=== PATIENT | male | born 1945 | race Caucasian/White ===

== ENCOUNTER 2017-01-23 00:06 | Emergency (ER) | payer SELFPAY ==
--- NOTE | 2017-01-23 04:29 | ED ORDER SUMMARY ---
..... Patient: PRABHAKAR TOLENTINO OrderSheet [facility] VisitID: [id number] [place] [address] 71y, M Registration Date/Time: 01/23/2017 ORDER SHEET Weight: 81.6 kg (stated) Allergies: No Known Drug Allergy GENERAL ORDERS: Shift Mechanic (Continuous) (dizzy) (00:01/23/2017 Laura Cage) (Ack 0:27 OSnell) (0:34 JSanders R.N.) CBC w Diff Urgent (00:01/23/2017 Laura Cage) (Ack 0:27 OSnell) (0:30 JSanders R.N.) CMP Urgent (00:01/23/2017 Laura Cage) (Ack 0:27 OSnell) (0:30 JSanders R.N.) UA-Culture if indicated Urgent (00:01/23/2017 Laura Cage) (Ack 0:27 OSnell) (4:00 JSanders R.N.) PT with INR Urgent (00:01/23/2017 Laura Cage) (Ack 0:27 OSnell) (0:30 JSanders R.N.) PTT Urgent (00:01/23/2017 Laura Cage) (Ack 0:27 OSnell) (0:30 JSanders R.N.) Troponin-I Urgent (00:01/23/2017 Laura Cage) (Ack 0:27 OSnell) (0:30 JSanders R.N.) EKG - ER Stat (00:01/23/2017 Lauar Cage) (Ack 0:27 OSnell) (0:30 JSanders R.N.) Pulse oximeter (00:01/23/2017 Laura Cage) (Ack 0:27 OSnell) (0:28 JSanders R.N.) CT Abd/Pel w Cont (No) (N/A) Urgent (00:01/23/2017 Laura Cage) (Ack 0:32 OSnell) (1:23 JSanders R.N.) Lipase Urgent (00:29 01/23/2017 Laura Cage) (0:30 JSanders R.N.) TSH Urgent (00:38 01/23/2017 Laura Cage) (Ack 0:42 OSnell) (0:51 JSanders R.N.) Chest 1V Urgent (00:53 01/23/2017 Laura Cage) (Ack 0:58 OSnell) (1:23 JSanders R.N.) Troponin-I (redraw once now) Urgent (02:51 01/23/2017 Laura Cage) (Ack 2:53 OSnell) (3:01 KALanders R.N.) MEDICATION ORDERS: Zofran ODT PO 4 mg (NOW) (00:26 01/23/2017 Laura Cage) (0:36 JSanders R.N.) Phenergan IV 25 mg (HIGH ALERT MEDICATION, NOW) (01:36 01/23/2017 Laura Cage) (Ack 1:37 JSanders R.N.) (1:52 JSanders R.N.) IV FLUIDS: Morphine IV 4 mg (HIGH ALERT MEDICATION, NOW) (00:26 01/23/2017 Laura Cage) (Ack 0:35 JSanders R.N.) (Cancelled: Patient Refusal2:45 KALanders R.N.) IV Saline Lock (00:26 01/23/2017 Laura Cage) (0:34 MCook R.N.) IV NS : initial bolus 1000 mL (1000 mL/hr), then none - for X1 (NOW) (02:55 01/23/2017 Laura Cage) (3:00 JSanders R.N.) ORDER SHEET NOTES: [Electronically signed by Catalina Jenkins R.N. (07:19 01/23/2017)] [Electronically signed by Carrillo Rowe Dr. (06:15 01/24/2017)] [Electronically locked/signed by Catalina Jenkins R.N. (07:19 01/23/2017)]
--- NOTE | 2017-01-23 04:29 | ED ORDER SUMMARY ---
..... Patient: PRABHAKAR TOLENTINO OrderSheet [facility] VisitID: [id number] [place] [address] 71y, M Registration Date/Time: 01/23/2017 ORDER SHEET Weight: 81.6 kg (stated) Allergies: No Known Drug Allergy GENERAL ORDERS: Hat Binder (Continuous) (dizzy) (00:01/23/2017 Laura Cage) (Ack 0:27 OSnell) (0:34 JSanders R.N.) CBC w Diff Urgent (00:01/23/2017 Laura Cage) (Ack 0:27 OSnell) (0:30 JSanders R.N.) CMP Urgent (00:01/23/2017 Laura Cage) (Ack 0:27 OSnell) (0:30 JSanders R.N.) UA-Culture if indicated Urgent (00:01/23/2017 Laura Cage) (Ack 0:27 OSnell) (4:00 JSanders R.N.) PT with INR Urgent (00:01/23/2017 Laura Cage) (Ack 0:27 OSnell) (0:30 JSanders R.N.) PTT Urgent (00:01/23/2017 Laura Cage) (Ack 0:27 OSnell) (0:30 JSanders R.N.) Troponin-I Urgent (00:01/23/2017 Laura Cage) (Ack 0:27 OSnell) (0:30 JSanders R.N.) EKG - ER Stat (00:01/23/2017 Laura Cage) (Ack 0:27 OSnell) (0:30 JSanders R.N.) Pulse oximeter (00:01/23/2017 Laura Cage) (Ack 0:27 OSnell) (0:28 JSanders R.N.) CT Abd/Pel w Cont (No) (N/A) Urgent (00:01/23/2017 Laura Cage) (Ack 0:32 OSnell) (1:23 JSanders R.N.) Lipase Urgent (00:29 01/23/2017 Laura Cage) (0:30 JSanders R.N.) TSH Urgent (00:38 01/23/2017 Laura Cage) (Ack 0:42 OSnell) (0:51 JSanders R.N.) Chest 1V Urgent (00:53 01/23/2017 Laura Cage) (Ack 0:58 OSnell) (1:23 JSanders R.N.) Troponin-I (redraw once now) Urgent (02:51 01/23/2017 Laura Cage) (Ack 2:53 OSnell) (3:01 KALanders R.N.) MEDICATION ORDERS: Zofran ODT PO 4 mg (NOW) (00:26 01/23/2017 Laura Cage) (0:36 JSanders R.N.) Phenergan IV 25 mg (HIGH ALERT MEDICATION, NOW) (01:36 01/23/2017 Laura Cage) (Ack 1:37 JSanders R.N.) (1:52 JSanders R.N.) IV FLUIDS: Morphine IV 4 mg (HIGH ALERT MEDICATION, NOW) (00:26 01/23/2017 Laura Cage) (Ack 0:35 JSanders R.N.) (Cancelled: Patient Refusal2:45 KALanders R.N.) IV Saline Lock (00:26 01/23/2017 Laura Cage) (0:34 MCook R.N.) IV NS : initial bolus 1000 mL (1000 mL/hr), then none - for X1 (NOW) (02:55 01/23/2017 Laura Cage) (3:00 JSanders R.N.) ORDER SHEET NOTES: [Electronically signed by Catalina Jenkins R.N. (07:19 01/23/2017)] [Electronically signed by Carrillo Rowe Dr. (06:15 01/24/2017)] [Electronically locked/signed by Catalina Jenkins R.N. (07:19 01/23/2017)]
--- NOTE | 2017-01-23 04:29 | ED NURSING NOTES ---
Clinical Report - Nurses [place] [address] [place] [address] 01/23/2017 0:09 Patient: PRABHAKAR TOLENTINO TRIAGE 00:16 01/23/17. BP: 165/74 (regular adult cuff) taken on the left arm. HR: 72. RR: 18. O2 saturation: 99% on room air. Temp: 97.4 F (oral). Pain level now: 010. --00:25 Catalina Jenkins R.N. late entry - 00:01/23/17. --00:45 Catalina Jenkins R.N. Triage time 00:Jan 23 2017. Acuity: LEVEL 4. Chief Complaint: FALL while standing, onto a carpeted surface (patient is dizzy, sensitive to light, diaphoretic). 00:25 01/23/17. SEPSIS SCREEN: Sepsis Screen. Negative (no infection suspected/documented). CARLOS COMA SCORE: Carlos Coma Scale: 15- eyes open spontaneously (4); best verbal response- oriented x 4 (5); best motor response- obeys commands (6). --00:25 Catalina Jenkins R.N. Weight: 81.6 kg stated. Height/Length: 67 inches Per Patient. BMI: 28.2. --00:24 Catalina Jenkins R.N. Medications None. --00:17 Catalina Jenkins R.N. Allergies No Known Drug Allergy. --00:17 Catalina Jenkins R.N. History Arrived by EMS. Historian: patient. This occurred just prior to arrival. Occurred at home. He has had dizziness. Treatment BLASTING MACHINE OPERATOR: None. Trauma activation: Pre-hospital notification of patient arrival was received. PAST MEDICAL HX: Negative. SOCIAL HX: Never smoker. No alcohol use or drug use. No infectious disease exposure. ABUSE ASSESSMENT: No report of abuse. SELF HARM ASSESSMENT: A self harm assessment was performed. The patient answered "no" to the question "Do you have thoughts of harming or killing yourself?" and "Have you recently had thoughts about harming or killing others?". --00:25 Catalina Jenkins R.N. Treatment BLASTING MACHINE OPERATOR: EMS treatment BLASTING MACHINE OPERATOR verbally communicated. Finger stick glucose performed (115). BP: 165/74. HR: 80 regular. RR: 18 (regular, unlabored and normal). Temp: 97.5 oral. O2 saturation: 98 % room air. --00:45 Catalina Jenkins R.N. PROBLEMS: no known problems. ADDITIONAL SURGERIES: no known surgeries. Interventions ID band on patient. To treatment room. --00:25 Catalina Jenkins R.N. PHYSICAL ASSESSMENT 00:27 01/23/17. To room via stretcher. Patient gowned. GENERAL / NEURO / PSYCH: Alert. Oriented X 4. Appears in no acute distress. Appears in pain. He has had weakness. HEENT: Pupils equal, round and reactive to light. Head non-tender. RESPIRATORY: Respirations not labored. Chest nontender. Breath sounds within normal limits. CVS: Normal heart rate and rhythm. Pulses within normal limits. Capillary refill less than 2 seconds. GI / : Abdominal tenderness. EXTREMITIES: Extremities exhibit normal ROM. SKIN: Skin intact. Skin is diaphoretic. --00:27 Catalina Jenkins R.N. NURSING PROGRESS NOTES 00:26 01/23/2017 Zofran ODT (Ondansetron) PO Oral Disintegrating Tablets 4 mg given. Allergies verified and confirmed 5 rights. --00:36 Catalina Jenkins R.N. 00:27 01/23/17. The plan of care for this patient has been created. Patient gowned. Reassurance given. Two patient identifiers checked. Call light placed in reach. Side rails up x 1. Bed placed in lowest position. Brakes of bed on. Patient ready for evaluation- chart flagged and ED physician notified. --00:28 Catalina Jenkins R.N. 00:29 01/23/2017 Site #1 started via IV in the right antecubital space with an 20g angiocath, with aseptic technique and good blood return; one attempt. Blood drawn: rainbow set. Labeled in the presence of the patient and sent to the lab. Saline lock flushed with 10 mL saline. --00:34 Arpit Lezama R.N. EKG time: (0032). EKG was ordered, performed by a tech and shown to the ED physician. --00:38 Catracho Ochoa, ER Substation Electrician Supervisor 00:55 01/23/17. ( Patient placed on 2L oxygen via NC). --00:55 Catalina Jenkins R.N. 00:55 01/23/17. ( Patient still feeling Nauseous). --00:55 Catalina Jenkins R.N. Patient transported to CT by stretcher with tech. (01:Jan 23 2017). --01:11 Catalina Jenkins R.N. Patient returned from radiology by stretcher with tech. (:Jan 23 2017). --01:22 Catalina Jenkins R.N. 01:28 01/23/17. --01:28 Catalina Jenkins R.N. 01:27 01/23/17. BP: 132/74 (regular adult cuff) taken on the left arm. HR: 68. RR: 22. O2 saturation: 100% on nasal cannula at 2 liters/minute. Pain level now: 0/10. --01:28 Catalina Jenkins R.N. ( son at bedside). --01:28 Catalina Jnekins R.N. ( patient given warm blanket). --01:28 Catalina Jenkins R.N. ( Patient having knee jerks, he thinks its because he is cold). --01:29 Catalina Jenkins R.N. ( Patient just had Xray). --01:36 Catalina Jenkins R.N. 01:49 01/23/17. BP: 135/82 (regular adult cuff) taken on the left arm, while sitting. HR: 64. RR: 18. O2 saturation: 100% on nasal cannula at 2 liters/minute. Pain level now: 0/10. --01:49 Catalina Jenkins R.N. 01:50 01/23/17. BP: 121/77 (regular adult cuff) taken on the left arm, while sitting. HR: 62. RR: 12. O2 saturation: 99% on nasal cannula at 2 liters/minute. --01:51 Catalina Jenkins R.N. 01:52 01/23/2017 PHENERGAN (Promethazine HCl) IVP 12.5 mg given over 5 minute(s) via site #1. Allergies verified and confirmed 5 rights. IV patency established. IV site checked: no pain, redness, or swelling. IV flushed thoroughly pre- and post-medication administration. IVP given by RN. --01:52 Catalina Jenkins R.N. 02:25 01/23/2017 PHENERGAN IVP Response: no adverse reaction pain is gone now. Symptoms have improved the patient feels better. --02:25 Catalina Jenkins R.N. 02:26 01/23/17. The patient is sleeping. Overall patient status is improved. RESPIRATORY: No respiratory distress. ( Patient sleeping, easily aroused, will let patient rest, vitals normal). --02:26 Catalina Jenkins R.N. 02:26 01/23/17. BP: 130/54 (regular adult cuff) taken on the left arm, while sitting. HR: 70. RR: 16. O2 saturation: 100% on nasal cannula at 2 liters/minute. Pain level now: 0/10. --02:27 Catalina Jenkins R.N. 03:00 01/23/2017 Started bag #1 1000 mL IV Fluids IV NS (Saline); bolus of 1000 mL over 1 hour(s) then at 1000 mL/hr over 1 hour(s) via site #1 via IV pump. Allergies verified and confirmed 5 rights. IV patency established. IV site checked: no pain, redness, or swelling. IV flushed thoroughly pre- and post-medication administration. --03:00 Catalina Jenkins R.N. 03:43 01/23/17. BP: 108/54 (regular adult cuff) taken on the left arm. HR: 71. RR: 16. O2 saturation: 100% on nasal cannula at 2 liters/minute. Pain level now: 0/10. --03:43 Catalina Jenkins R.N. 03:46 01/23/17. ( Explained to patient and son what an elevated troponin means and when it elevates, they state their understanding to this explanation, also explained that there hasn't been any elevation in the troponin). --03:46 Catalina Jenkins R.N. 04:18 01/23/2017 IV Fluids IV NS Discontinued: bag #1 completed. Total amount infused: 1000 mL. IV patency established. IV site checked: no pain, redness, or swelling. IV flushed thoroughly. --04:43 Catalina Jenkins R.N. DISPOSITION / DISCHARGE 04:30 01/23/17. BP: 110/50 (regular adult cuff) taken on the left arm, while sitting. HR: 72. RR: 16. O2 saturation: 99% on nasal cannula at 2 liters/minute. Temp: 97.5 F (oral). Pain level now: 0/10. --04:32 Catalina Jenkins R.N. 04:32 01/23/17. --04:32 Catalina Jenkins R.N. 04:42 01/23/2017 Site #1 removed upon discharge. Bandaid applied. --04:42 Catalina Jenkins R.N. 04:44 01/23/17. Condition at departure: improved. No learning barriers present. Discharge instructions provided and reviewed with the patient. Reviewed medication(s) side effects, precautions, dosing and course information. Prescription(s) given to the patient (Phenergan). Reviewed need for increased fluid intake. Family verbalized understanding. Written instructions provided in Belarusian. The patient was discharged by the physician. He was discharged home and accompanied by family. He left the Emergency Department ambulatory and via private vehicle. Family member driving. --04:44 Catalina Jenkins R.N. Departure time: 04:45 Jan 23 2017. --04:45 Catalina Jenkins R.N. Locked/Released at 01/23/2017 7:19 by Catalina Jenkins R.N.
--- NOTE | 2017-01-23 04:29 | ED CLINICAL REPORT ---
Clinical Report - Physicians/Mid Levels [facility] [address] [place] [address] 01/23/2017 0:09 Patient: PRABHAKAR TOLENTINO Time Seen: 0010. Arrived- By ambulance. Historian- patient. HISTORY OF PRESENT ILLNESS Chief Complaint: ABDOMINAL PAIN. It is described as sharp and it is described as located in the left upper quadrant. At its maximum, severity described as moderate. Modifying factors- worsened by movement. Relieved by rest. This started today and is still present. It was abrupt in onset and has been constant but is not gone now. The patient has had nausea and vomiting. (states he feels dizzy like "on a roller coaster." Reports this happened after getting up and answering the phone. reports slumping to the floor and not being able to get up. Reports generalized weakness. States he had a hernia and was moving furniture recently.). Similar symptoms previously: None. Recent medical care: Not recently seen/assessed. REVIEW OF SYSTEMS No constipation, black stools, hematemesis, bloody stools or chest pain. No difficulty breathing. All systems otherwise negative, except as recorded above. PAST HISTORY See nurses notes. Problems: no known problems. Additional Surgeries: no known surgeries. Medications: None. Allergies: No Known Drug Allergy. SOCIAL HISTORY Never smoker. No alcohol use or drug use. No recent travel. Is a local resident. ADDITIONAL NOTES The nursing notes have been reviewed. PHYSICAL EXAM Vital Signs: 01/23/2017 00:16 BP: 165/74. HR: 72. RR: 18. O2 saturation: 99%. Temp: 97.4 F. Pain level now: 0/10. Oxygen saturation normal. Appearance: Alert. Oriented X3. No acute distress. Eyes: Pupils equal, round and reactive to light. Eyes normal inspection. ENT: Ears normal. Nose normal. Pharynx normal. Neck: Normal inspection. CVS: Normal heart rate and rhythm. Heart sounds normal. Pulses normal. Respiratory: No respiratory distress. Breath sounds normal. Chest nontender. No rales, rhonchi or wheezes. Abdomen: Soft and nontender. Bowel sounds normal. No organomegaly. No mass. Femoral pulses equal. Back: Normal inspection. Skin: Skin warm and dry. Normal skin color. No rash. Normal skin turgor. Extremities: Extremities exhibit normal ROM. No lower extremity edema. Neuro: Oriented X 3. No motor deficit. No sensory deficit. (normal HINTS exam.). LABS, X-RAYS, AND EKG EKG: No acute process. No acute ischemia. Normal EKG. Normal sinus rhythm. Rate: 72. Normal P waves. Normal SKYLA. Normal QRS complex. Normal axis. Normal ST and T waves and QT. No RBBB pattern on my read. The study has been interpreted contemporaneously. The study has been independently viewed by me. The EKG appears to be a good tracing. Laboratory Tests: UA-Culture if indicated: (HODA: 01/23/2017 03:55) ( [facility] Final results Test Result Flag Units (Reference) URINE COLOR YELLOW URINE APPEARANCE CLEAR URINE GLUCOSE NEGATIVE (NEGATIVE) URINE BILIRUBIN NEGATIVE (NEGATIVE) URINE KETONE NEGATIVE (NEGATIVE) URINE SPECIFIC GRAVITY 1.010 (1.010-1.030) URINE PH 7.0 (5.0-8.0) URINE PROTEIN NEGATIVE (NEGATIVE) URINE UROBILINOGEN 0.2 EU/dL (0.2-1.0) URINE NITRITE NEGATIVE (NEGATIVE) URINE BLOOD NEGATIVE (NEGATIVE) URINE LEUK ESTERASE NEGATIVE (NEGATIVE) URINE RBC 0-1 rbc/hpf (0-1) URINE WBC 0-1 wbc/hpf (0-1) URINE EPITHELIAL CELLS 0-1 EPI/hpf (0-5) URINE BACTERIA NONE SEEN (NONE SEEN) URINE COMMENT CULT NOT INDICATED URINE CULTURES ARE SET-UP BASED ON THE FOLLOWING CRITERIA:POSITIVE NITRITEPOSITIVE LEUKOCYTE ESTERASEGREATER THAN 10 WHITE BLOOD CELLSMODERATE (2+) OR GREATER BACTERIA CBC w Diff: (HODA: 01/23/2017 00:30) ( [facility] 01/23/2017 00:38) Final results Test Result Flag Units (Reference) WHITE BLOOD COUNT 11.7 H K/uL (4.5-11.5) RED BLOOD COUNT 4.70 M/uL (4.50-5.90) HEMOGLOBIN 14.7 gm/dL (13.5-17.5) HEMATOCRIT 43.3 % (41.0-53.0) MEAN CELL VOLUME 92 fL (80-100) MEAN CORPUSCULAR HGB 31 pg (26-34) MEAN CORPUSCULAR HGB CONC 34 g/dL (31-37) RED CELL DISTRIBUTION WIDTH 12.8 % (11.6-14.8) PLATELET COUNT 339 K/uL (150-400) NEUTROPHIL % 38.1 L % (50-75) LYMPH % 47.5 H % (25-40) MONO % 9.0 % (3-14) EOSINOPHIL % 4.7 H % (0-4) BASOPHIL % 0.7 % (0-2) PT with INR: (HODA: 01/23/2017 00:30) ( [facility] 01/23/2017 00:46) Final results Test Result Flag Units (Reference) INR 1.0 (0.8-1.2) Low Intensity Therapy: INR 1.5-2.0 PT range 18.5-23.1Mod.Intensity Therapy: INR 2.0-3.0 PT range 23.1-31.5High Intensity Therapy: INR 2.5-3.5 PT range 27.4-35.5High Intensity Therapy 2: INR 3.0-4.0 PT range 31.5-39.3 APTT 28 SECONDS (24-34) Troponin-I: (HODA: 01/23/2017 03:00) ( [facility] 01/23/2017 03:25) Final results Test Result Flag Units (Reference) TROPONIN I <0.05 ng/mL (0.00-1.5) TROPONIN REFERENCE RANGE:<0.1 NEGATIVE0.1-1.5 INDETERMINANT>1.5 POSITIVE TSH: (HODA: 01/23/2017 00:30) ( [facility] 01/23/2017 01:03) Final results Test Result Flag Units (Reference) THYROID STIMULATING HORMONE 3.377 uIU/mL (0.30-3.74) Lipase: (HODA: 01/23/2017 00:30) ( [facility] 01/23/2017 01:03) Final results Test Result Flag Units (Reference) LIPASE 229 U/L (73-393) CMP: (HODA: 01/23/2017 00:30) ( [facility] 01/23/2017 00:55) Final results Test Result Flag Units (Reference) GLUCOSE 114 H mg/dL (70-110) BUN 23 H mg/dL (7-18) CREATININE 0.9 mg/dL (0.6-1.3) Estimated GFR >60 mL/min Estimated GFR- >60 mL/min Note: Persistent reduction over 3 months in eGFR<60 mL/min/1.73 m2 defines CKD. Patients with eGFR values>=60 mL/min/1.73 m2 may also have CKD if evidence ofpersistent proteinuria. Additional information may be foundat www.kidney.org. SODIUM 142 mmol/L (136-145) POTASSIUM 3.7 mmol/L (3.5-5.1) CHLORIDE 104 mmol/L (98-107) CARBON DIOXIDE 27 mmol/L (21-32) CALCIUM 9.0 mg/dL (8.5-10.1) TOTAL PROTEIN 7.3 g/dL (6.4-8.2) ALBUMIN 3.8 g/dL (3.3-5.0) BILIRUBIN, TOTAL 0.8 mg/dL (0.0-1.0) ALKALINE PHOSPHATASE 51 U/L (46-116) AST (SGOT) 19 U/L (15-37) ALT (SGPT) 28 U/L (12-78) TROPONIN I <0.05 ng/mL (0.00-1.5) TROPONIN REFERENCE RANGE:<0.1 NEGATIVE0.1-1.5 INDETERMINANT>1.5 POSITIVE . PROGRESS AND PROCEDURES Course of Care: Patient with dizziness and n/v. generalized weakness and could not stand up after answering phone. neuro exam negative. normal HINTS exam. Do not feel this is stroke. Patient with nausea and vomiting after palpation of abdomen. Concern for abdominal etiology of symptoms. Could also be cardiac. Will be evaluating for other causes of near-syncope as well however feel it is more vertiginous in etiology. The Patient's Workup Was Markable for the Findings above. During Patient's Stay Here in the Emergency Department He Is Noted to Report Some Shortness of Breath after His Episode of Nausea and Vomiting. We'll Also Add a Chest X-Ray to the Patient's Evaluation. Patient's CT Scan Does Not Show Any Acute Abnormalities. Patient with a Nontender Abdominal Examination and Continues to Be Non-Peritoneal. Patient with Improved Symptoms While Here in the Emergency Department. EKG without Any Acute Abnormalities. Because of the Patient's Negative Workup Here in the Emergency Department and Significant Improvement with Symptoms, Feel Patient Is a Stable Outpatient Candidate. Patient Continues to Be Nontoxic and Is in No Acute Distress. Repeat Examination Continues to Be Benign. Do Not Fill Symptoms at This Time Are Due To the Acute Stroke or Similar Etiology. I Discussion with the Patient and the Patient's Son Who Is at Bedside per Patient's Request about Their Workup in the Emergency Department Including Diagnosis, Home Care, Follow-Up, and Return Precautions. All Questions Have Been Answered. The Patient Expressed Understanding of These Instructions and Was Agreeable to Them. Disposition: Discharged. Condition: good. CLINICAL IMPRESSION 01/23/2017 03:43 BP: 108/54. HR: 71. RR: 16. O2 saturation: 100%. Pain level now: 0/10. Moderate nausea with vomiting (acute). Blood pressure normal. Oxygen saturation normal. Mild dehydration (acute). 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 INSTRUCTIONS Warnings: GENERAL WARNINGS: Return or contact your physician immediately if your condition worsens or changes unexpectedly, if not improving as expected, or if other problems arise. SPECIFICALLY, return if you develop pain, fever, vomiting, the inability to keep fluids down, blood in vomitus, blood in diarrhea, fainting or lightheadedness. Prescription Medications: Phenergan 25 mg suppositories: insert 1 rectally every 8 hours as needed for nausea, vomiting or motion sickness. Dispense thirty (30). No refill. Substitution is permissible Follow-up: Return to the emergency department as needed. Follow up with your doctor in three days. Reason for referral: recheck today's concerns. Summary of care provided to patient via paper. Screening today revealed the patient's blood pressure to be in the normal range. The patient should follow up with a primary care provider for blood pressure management. (Electronically signed by Carrillo Rowe Dr. 01/24/2017 6:15)
--- NOTE | 2017-01-23 05:58 | DIAGNOSTIC IMAGING REPORT ---
PROCEDURE: XR CHEST 1 VIEW INDICATION: SHORTNESS OF BREATH TECHNIQUE: Portable AP view 01:39 a.m. COMPARISON: None. FINDINGS: Lungs are clear. Heart and mediastinum are normal. Thorax is normal. IMPRESSION: 1. Negative chest.
--- NOTE | 2017-01-23 07:00 | DIAGNOSTIC IMAGING REPORT ---
PROCEDURE: CT ABD/PELVIS WITH CONTRAST CLINICAL INDICATION: ABDOMINAL PAIN TECHNIQUE: 125 ml of Isovue 300 were injected intravenously and axial images were obtained of the entire abdomen and pelvis with sagittal and coronal reformations. COMPARISON: None. FINDINGS: ABDOMEN: Minor dependent atelectasis in both lung bases. Normal heart size. Liver, gallbladder, pancreas, spleen (calcified granuloma) and adrenal glands are normal. Bilateral renal cysts, largest on the right 5.7 cm. Moderate atherosclerosis of the aorta. Nonspecific bowel gas pattern. PELVIS: Normal appendix. Moderate stool. Mildly enlarged prostate. Normal bladder. No pelvic mass, free fluid or inflammatory changes. Small fat- containing left inguinal hernia. No suspicious osseous lesions. IMPRESSION: 1. Calcified splenic granuloma 2. Bilateral renal cysts 3. Preliminary results submitted by Dr. Kwan, [facility] radiology. All CT scans at this facility use dose modulation, iterative reconstruction, and/or weight-based dosing when appropriate to reduce radiation dose to as low as reasonably achievable.
--- NOTE | 2017-01-24 06:15 | ED MED RECONCILIATION SUMMARY ---
Patient: PRABHAKAR TOLENTINO Medication Reconciliation Report [facility] VisitID: [id number] [address] [place] [address] 71y, M Registration Date/Time: 01/23/2017 Weight: 81.6 kg Height/Length: 67 in. BMI: 28.2 ALLERGIES: No Known Drug Allergy The patient's Home Medications are listed below: NONE. The source(s) of the original Home Medication information: Not obtained. The following Medications were given to the patient in the Emergency Department: Zofran ODT [PO] PO 4 mg, administered: 01/23/2017 12:26:00 AM PHENERGAN [IVP] IVP 12.5 mg, administered: 01/23/2017 1:52:00 AM IV NS IV Fluids bolus 1000 mL over 1 hour(s), then 1000 mL/hr, administered: 01/23/2017 3:00:00 AM The following Medications were prescribed to the patient: Phenergan 25 mg suppositories: insert 1 rectally every 8 hours as needed for nausea, vomiting or motion sickness. Dispense thirty (30). No refill. Substitution is permissible -- Carrillo [address]e [address].
--- NOTE | 2017-01-24 06:15 | ED MED RECONCILIATION SUMMARY ---
Patient: PRABHAKAR TOLENTINO Medication Reconciliation Report [facility] VisitID: [id number] [address] [place] [address] 71y, M Registration Date/Time: 01/23/2017 Weight: 81.6 kg Height/Length: 67 in. BMI: 28.2 ALLERGIES: No Known Drug Allergy The patient's Home Medications are listed below: NONE. The source(s) of the original Home Medication information: Not obtained. The following Medications were given to the patient in the Emergency Department: Zofran ODT [PO] PO 4 mg, administered: 01/23/2017 12:26:00 AM PHENERGAN [IVP] IVP 12.5 mg, administered: 01/23/2017 1:52:00 AM IV NS IV Fluids bolus 1000 mL over 1 hour(s), then 1000 mL/hr, administered: 01/23/2017 3:00:00 AM The following Medications were prescribed to the patient: Phenergan 25 mg suppositories: insert 1 rectally every 8 hours as needed for nausea, vomiting or motion sickness. Dispense thirty (30). No refill. Substitution is permissible -- Carrillo [address]e [address]
--- NOTE | 2017-01-24 06:15 | ED MAR SUMMARY ---
..... Medication Administration Record [facility] [address] [place] [address] Patient: PRABHAKAR TOLENTINO Visit ID: [id number] 71y, M Weight: 81.6 kg Height/Length: 67 in BMI: 28.2 ALLERGIES: No Known Drug Allergy Given 00:26 01/23/2017 Catalina Jenkins R.N. Medication Administered: ZOFRAN ODT [PO] (ONDANSETRON), Dose: 4 mg Oral Disintegrating Tablets PO. Medication Ordered: Zofran ODT PO 4 mg (NOW). Given 01:52 01/23/2017 Catalina Jenkins R.N. Medication Administered: PHENERGAN [IVP] (PROMETHAZINE HCL), Dose: 12.5 mg IVP over 5 minute(s), Site: #1 right AC. Medication Ordered: Phenergan IV 25 mg (HIGH ALERT MEDICATION, NOW). Start 03:00 01/23/2017 Catalina Jenkins R.N., Stop 04:18 01/23/2017 Catalina Jenkins R.N. Medication Administered: IV NS (SALINE), Dose: IV Fluids over 1 hour(s), Rate: 1000 mL/hr, Bolus: 1000 mL over 1 hour(s), Dispensed: 1000 mL bag, Site: #1 right AC. Medication Ordered: IV NS : initial bolus 1000 mL (1000 mL/hr), then none - for X1 (NOW).
--- NOTE | 2017-01-24 06:15 | ED DISCHARGE INSTRUCTIONS ---
Patient: PRABHAKAR TOLENTINO General Instructions [facility] VisitID: [id number] [place] [address] 71y, M Registration Date/Time: 01/23/2017 01/23/2017 03:43 BP: 108/54. HR: 71. RR: 16. O2 saturation: 100%. Pain level now: 0/10. Moderate nausea with vomiting (acute). Blood pressure normal. Oxygen saturation normal. Mild dehydration (acute). 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 INSTRUCTIONS Warnings: GENERAL WARNINGS: Return or contact your physician immediately if your condition worsens or changes unexpectedly, if not improving as expected, or if other problems arise. SPECIFICALLY, return if you develop pain, fever, vomiting, the inability to keep fluids down, blood in vomitus, blood in diarrhea, fainting or lightheadedness. Prescription Medications: Phenergan 25 mg suppositories: insert 1 rectally every 8 hours as needed for nausea, vomiting or motion sickness. Dispense thirty (30). No refill. Substitution is permissible Follow-up: Return to the emergency department as needed. Follow up with your doctor in three days. Reason for referral: recheck today's concerns. Summary of care provided to patient via paper. Screening today revealed the patient's blood pressure to be in the normal range. The patient should follow up with a primary care provider for blood pressure management. ADDITIONAL INFORMATION Dehydration (Adult) Dehydration occurs when your body loses too much fluid. This may be the result of vomiting a lot or from diarrhea,sweating a lot, or a high fever. It may also happen if you dont drink enough fluid when youre sick. Misuse of diuretics (water pills) can also be a cause. Symptoms include thirst and feeling dizzy, weak, fatigued, or very drowsy. The diet described below is usually enough to treat most cases. Sometimes you may needmedicine. Home Care Follow these guidelines for home care: Drink at least 12 8-ounce glasses of fluid every day to overcome the dehydration. Fluid may include water; orange juice; lemonade; apple, grape, and cranberry juice; clear fruit drinks; electrolyte replacement and sports drinks; and teas and coffee without caffeine. If you have been diagnosed with a kidney disease, ask your doctor how much and what types of fluids you should drink to prevent dehydration. If you have kidney disease, drinking too much fluid can cause it build up in the your body and be dangerous to your health. If you have fever, muscle aching, or headache from a viral syndrome, you may useacetaminophen or ibuprofen, unless another medicine was prescribed for this.If you have chronic liver or kidney disease or ever had a stomach ulcer or GI bleeding, talk with your doctor before using these medicines. Don't take aspirin if you are younger than 18 and are ill with a fever.Aspirin raises the chance forsevere liver injury. Follow-up care Follow up with your health care provider if you don't get better in the next 24 to 48 hours. When to seek medical care Get prompt medical attention if any of theseoccur: Continued vomiting (cant keep liquids down) Frequent diarrhea (more than 5 times a day); blood (red or black color) or mucus in diarrhea Blood in vomit or stool Swollen abdomen or increasing abdominal pain Weakness, dizziness, or fainting Unusually drowsy or confused Reduced urine output or extreme thirst Fever of 100.4 F (38 C) oral or higher that does not get better with fever medication Hernia [Adult] A hernia is a bulge of the intestines or surrounding tissues through a tear in the muscle of the abdomen or groin. This may occur as a result of excessive coughing, heavy lifting or being overweight. It can also occur at the site of prior surgery. When a hernia first appears it may be painful due to stretching and tearing of the muscle fibers. When you lie down, the bulge should reduce in size or disappear completely. If it does not, and you are unable to flatten it with your hand, medical attention is needed at once. Home Care: Avoid heavy lifting and straining or any activities that cause pain in the hernia. Follow Up with your physician as directed by our staff. Get Prompt Medical Attention if any of the following occur: Increasing size of the hernia Increasing pain in the hernia A hernia that does not get smaller when you lie down Hardening of the hernia Abdominal swelling, fever or repeated vomiting Pain moves to the lower right abdomen (just below the waistline) or spreads to the back Promethazine Hydrochloride Oral tablet What is this medicine? PROMETHAZINE (proe METH a zeen) is an antihistamine. It is used to treat allergic reactions and to treat or prevent nausea and vomiting from illness or motion sickness. It is also used to make you sleep before surgery, and to help treat pain or nausea after surgery. How should I use this medicine? Take this medicine by mouth with a glass of water. Follow the directions on the prescription label. Take your doses at regular intervals. Do not take your medicine more often than directed. Talk to your art instructor regarding the use of this medicine in children. Special care may be needed. This medicine should not be given to infants and children younger than 2 years old. What side effects may I notice from receiving this medicine? Side effects that you should report to your doctor or health care companion as soon as possible: blurred vision irregular heartbeat, palpitations or chest pain muscle or facial twitches pain or difficulty passing urine seizures skin rash slowed or shallow breathing unusual bleeding or bruising yellowing of the eyes or skin Side effects that usually do not require medical attention (report to your doctor or health care companion if they continue or are bothersome): headache nightmares, agitation, nervousness, excitability, not able to sleep (these are more likely in children) stuffy nose What may interact with this medicine? Do not take this medicine with any of the following medications: medicines called MAO Inhibitors like Nardil, Parnate, Marplan, Eldepryl other phenothiazines like trimethobenzamide This medicine may also interact with the following medications: barbiturates like phenobarbital bromocriptine certain antidepressants certain antihistamines used in allergy or cold medicines epinephrine levodopa medicines for sleep medicines for mental problems and psychotic disturbances medicines for movement abnormalities as in Parkinson's disease, or for gastrointestinal problems muscle relaxants prescription pain medicines What if I miss a dose? If you miss a dose, take it as soon as you can. If it is almost time for your next dose, take only that dose. Do not take double or extra doses. Where should I keep my medicine? Keep out of the reach of children. Store at room temperature, between 20 and 25 degrees C (68 and 77 degrees F). Protect from light. Throw away any unused medicine after the expiration date. What should I tell my health care provider before I take this medicine? They need to know if you have any of these conditions: glaucoma high blood pressure or heart disease kidney disease liver disease lung or breathing disease, like asthma prostate trouble pain or difficulty passing urine seizures an unusual or allergic reaction to promethazine or phenothiazines, other medicines, foods, dyes, or preservatives or trying to get breast-feeding What should I watch for while using this medicine? Tell your doctor or health care companion if your symptoms do not start to get better in 1 to 2 days. You may get drowsy or dizzy. Do not drive, use machinery, or do anything that needs mental alertness until you know how this medicine affects you. To reduce the risk of dizzy or fainting spells, do not stand or sit up quickly, especially if you are an older patient. Alcohol may increase dizziness and drowsiness. Avoid alcoholic drinks. Your mouth may get dry. Chewing sugarless gum or sucking hard candy, and drinking plenty of water may help. Contact your doctor if the problem does not go away or is severe. This medicine may cause dry eyes and blurred vision. If you wear contact lenses you may feel some discomfort. Lubricating drops may help. See your eye doctor if the problem does not go away or is severe. This medicine can make you more sensitive to the sun. Keep out of the sun. If you cannot avoid being in the sun, wear protective clothing and use sunscreen. Do not use sun lamps or tanning beds/booths. If you are diabetic, check your blood-sugar levels regularly. You have been given the following additional information: Dehydration (Adult) Hernia (Inguinal, Ventral, Umbilical) Promethazine Hydrochloride Oral tablet (Electronically signed by Carrillo Rowe Dr. 01/24/2017 6:15)
--- NOTE | 2017-01-24 06:15 | ED MAR SUMMARY ---
..... Medication Administration Record [facility] [address] [place] [address] Patient: PRABHAKAR TOLENTINO Visit ID: [id number] 71y, M Weight: 81.6 kg Height/Length: 67 in BMI: 28.2 ALLERGIES: No Known Drug Allergy Given 00:26 01/23/2017 Catalina Jenkins R.N. Medication Administered: ZOFRAN ODT [PO] (ONDANSETRON), Dose: 4 mg Oral Disintegrating Tablets PO. Medication Ordered: Zofran ODT PO 4 mg (NOW). Given 01:52 01/23/2017 Catalina Jenkins R.N. Medication Administered: PHENERGAN [IVP] (PROMETHAZINE HCL), Dose: 12.5 mg IVP over 5 minute(s), Site: #1 right AC. Medication Ordered: Phenergan IV 25 mg (HIGH ALERT MEDICATION, NOW). Start 03:00 01/23/2017 Catalina Jenkins R.N., Stop 04:18 01/23/2017 Catalina Jenkins R.N. Medication Administered: IV NS (SALINE), Dose: IV Fluids over 1 hour(s), Rate: 1000 mL/hr, Bolus: 1000 mL over 1 hour(s), Dispensed: 1000 mL bag, Site: #1 right AC. Medication Ordered: IV NS : initial bolus 1000 mL (1000 mL/hr), then none - for X1 (NOW).
== END 2017-01-23 04:45 | disposition home or self-care (01) ==
LOC: ED SRH 00:06
DX: K40.91 Unilateral inguinal hernia, without obstruction or gangrene, recurrent (principal); E86.0 Dehydration; R11.2 Nausea with vomiting, unspecified
CPT/HCPCS: 90004; 90074; 90100; 90616; 92235; 93140; 94001; 94060; 95059